=== PATIENT | male | born 1980 | race Caucasian/White ===

== ENCOUNTER 2016-06-24 19:26 | Emergency (ER) | payer OTHER ==
[~2016-06-24] VITALS: Ht 175.3 cm; Wt 88.1 kg
[~2016-06-24 19:26] MED LIST: CLEOCIN300 MG PO; LORTAB 5-325 M1 EACH PO; NOHOMEMEDS
[2016-06-24 22:06] VITALS: BP 149/79
== END 2016-06-24 22:07 | disposition home or self-care (01) ==
LOC: EME 19:26
DX: S61.411A Laceration without foreign body of right hand, initial encounter (principal); Z23 Encounter for immunization; W25.XXXA Contact with sharp glass, initial encounter
CPT/HCPCS: 99281; 99284